=== PATIENT | female | born 1940 | race Caucasian/White ===

== ENCOUNTER 2016-10-15 11:46 | Inpatient (IN) | payer MEDICARE, BC ==
[~2016-10-15] VITALS: Ht 160 cm; Wt 84.0 kg
--- NOTE | ~2016-10-15 | DS ---
PATIENT'S NAME: CARLOS COTA [facility] AGE: 76 Y [address] ROOM: [place] [address] [place] [facility] [place]: 10/15/2016 Discharge Summary DISCHARGE DATE: 10/24/2016 FAMILY PHYSICIAN: Eduardo Chavez MD ATTENDING PHYSICIAN: Sky Mitchell CONSULTING PHYSICIANS: 1. Dr. Wayne Bashir, Urology. 2. Dr. Laureano Paz, interventional radiologist. ADMIT DIAGNOSES: 1. Severe sepsis secondary to Klebsiella pneumonia, urinary tract infection, Enterococcus faecalis urinary tract infection. 2. Bilateral hydronephrosis, status post bilateral percutaneous nephrostomy tubes. 3. Obstructing 8 mm right ureter stone. 4. Acute kidney injury on chronic kidney disease 3. 5. Microcytic anemia, present on admission. 6. Acute hypoxic respiratory failure secondary to severe sepsis and chronic obstructive pulmonary disease. 7. Chronic obstructive pulmonary disease. 8. High suspicion for underlying obstructive sleep apnea. 9. Hypertension, essential. 10. Hypomagnesia. 11. Diastolic congestive heart failure. 12. Obesity with a BMI of 32.5. 13. History of endometrial cancer. 14. Obstructive uropathy with urostomy bag secondary to complication of chemotherapy and radiation. 15. Depression. PRINCIPAL PROCEDURES: Bilateral nephrostomy tubes placement done by Dr. Paz on 10/16/2016. DISCHARGE MEDICATIONS: 1. Lipitor 40 mg p.o. q.h.s. 2. Colestipol HCl 1 g p.o. q.h.s. 3. Celexa 20 mg p.o. daily. 4. Lasix 20 mg p.o. daily. 5. Levofloxacin 750 mg p.o. q.48 hours through 10/29/2016. 6. Magnesium oxide 400 mg p.o. twice daily. 7. Metoprolol Succinate 50 mg p.o. daily. 8. Lisinopril and hydrochlorothiazide 10/12.5 mg 1 tablet p.o. daily. 9. Multivitamin p.o. daily. 10. Florastor 250 mg p.o. b.i.d. PATIENT'S NAME: CARLOS COTA [facility] AGE: 76 Y [address] ROOM: [place] [address] [place] [facility] [place]: 10/15/2016 Discharge Summary DISCHARGE DATE: 10/24/2016 FAMILY PHYSICIAN: Eduardo Chavez MD ATTENDING PHYSICIAN: Sky Mitchell 11. O2 to be worn 3 L with active, O2 necessary at rest. PERTINENT RADIOLOGIC DATA: 1. CT of the abdomen and pelvis without contrast on 10/15/2016 showed an ileal conduit, moderate bilateral hydronephrosis above the level of the anastomosis with a conduit. There is an obstructing 8 mm stone of the right ureter just above the anastomosis with conduit. 2. Chest x-ray on 10/15/2016 showed mild cardiomegaly but no heart failure nor pneumonia. This was repeated on 10/16/2016 for hypoxia and showed a stable chest with no evidence of acute disease. 3. The patient had blood cultures obtained on 10/15/2016, which showed no growth at 5 days. LABORATORY DATA: The patient's creatinine drifted up to as high as 2.5, on the day of discharge had descended to 1.6. Magnesium upon admission was low at 1.4, was 1.8 on 10/24/2016. Iron studies showed iron was low at 16, TIBC 133, percent saturation of 12. CRP was elevated at 20.9 on October 15, 2016. B12 was normal at 915, folate was 26.4, ferritin 400.7. HOSPITAL COURSE: Please refer to the admitting H and P dictated by Dr. Mitchell. The patient was admitted, deemed septic, and was started on antibiotics, which was changed from Zosyn to Levaquin looking back at urine cultures. The patient was placed on the sepsis protocol. She was placed on Protonix. The CT of the abdomen and pelvis at that point was ordered. Interventional Urology was consulted, and Dr. Bashir has seen the patient. At that point, Interventional Radiology was consulted for bilateral nephrostomy tubes placement given her hydronephrosis. Levaquin dosing was adjusted given the patient's GFR. The patient tolerated the percutaneous nephrostomy tube placement well. This was carried out on 10/16/2016. She was felt to be in acute hypoxic respiratory failure on the evening of 10/16/2016. Chest x-ray was obtained. The patient ultimately at that point was transferred to the ICU. Her respiratory failure was felt to be secondary to the sepsis and underlying COPD. The patient was placed on bronchodilators. Solu-Medrol was discontinued on , and heparin was then started for DVT prophylaxis. The patient was then transferred to the PCU unit out of the unit as it felt was stable. The patient was eventually weaned down to 1 L of oxygen to continue to keep sats greater than 90%. The patient has high suspicion of having underlying CONTRERAS. The patient denies ever having undergone a sleep study. There was witnessed apneic spells during hospitalization, and we recommended outpatient sleep study to follow this up. The patient received a bump in Lasix to see if this would help with her respiratory status. She diuresed well, and this does seem to have had benefit to her. Our respiratory therapy follow along throughout her hospitalization also. Ultimately, it was felt that the patient was stable for PATIENT'S NAME: CARLOS COTA [facility] AGE: 76 Y [address] ROOM: [place] [address] [place] [facility] [place]: 10/15/2016 Discharge Summary DISCHARGE DATE: 10/24/2016 FAMILY PHYSICIAN: Eduardo Chavez MD ATTENDING PHYSICIAN: Sky Mitchell discharge on 10/24/2016. The patient was ambulated, and O2 sats were at 82% with ambulation on room air but bumped to 92% with 3 L of O2 with ambulation. DISPOSITION: 1. The patient will be discharged to her own home. She will undergo nephrostomy tube teachings, stable for discharge. 2. She is to follow up on 10/30/2016 for bilateral ureteral stent placement by Dr. Laureano Paz. She is to report for the procedure at 1:45 on 10/30/2016. The patient is to be n.p.o. 8 hours prior to arrival. 3. She needs to see Dr. Bashir in approximately 2 weeks to discuss elective lithotripsy for the ureteral stone seen per CT scan. 4. We recommend that she follow up with either Dr. Eduardo Chavez, her primary physician, or Lisa Huynh PA-C at [facility] in 7 to 10 days. At that point, we recommend checking a CBC, BMP and magnesium level at that visit. The patient will continue on her oral magnesium replacement upon discharge. 5. The patient is to be on 3 L of oxygen per nasal cannula when ambulating. The patient's sats were fine at rest without oxygen. We do recommend that she undergo an outpatient sleep study at some point given her high suspect for underlying CONTRERAS. 6. The patient was instructed to complete her course of antibiotics, which will be a total of 2 weeks of the Levaquin. This should be covered through 10/29/2016. The patient understood discharge instructions and medications. Discharge for this patient took greater than 50 minutes and included contacting subspecialty, disciplinaries, and also attempting to reach her PCP and coordinating care for followup. Also included working with respiratory therapy for home O2. Thank you for allowing us to help participate in this patient's care. SALVATORE RUEDA PA-C FOR MD JANICE BREWER/modl /[id number] CC: MD Laureano Blake MD PATIENT'S NAME: CARLOS COTA [facility] AGE: 76 Y [address] ROOM: [address] [address] [place] [facility] [place]: 10/15/2016 Discharge Summary DISCHARGE DATE: 10/24/2016 FAMILY PHYSICIAN: Eduardo Chavez MD ATTENDING PHYSICIAN: Sky Mitchell PA Scott F Howe, MD d: 10/24/16 2357 t: 10/26/16 1643, DISCHARGE SUMMARY
--- NOTE | ~2016-10-15 | ER ---
PATIENT'S NAME: [facility] AGE: 76 Y [address] ROOM: [address] [place], [place] [address] [facility] ADMIT DATE: 10/15/2016 ER/Outpatient Report DISCHARGE DATE: FAMILY PHYSICIAN: Eduardo Chavez MD ATTENDING PHYSICIAN: Sky BULLARD Admission date and time documented in the medical record. I saw the patient at 1200 hours. CHIEF COMPLAINT: Fever, shaking, chills, weak, and dizziness. HISTORY OF PRESENT ILLNESS: This patient is a 76-year-old female, who was seen yesterday here and was diagnosed with a urinary tract infection. She was recommended to be admitted to the hospital for IV antibiotics, however, she refused. She is placed on Bactrim double strength. She took one last night and one this morning. She has been getting weaker with a lot of lightheaded and dizziness over the past 2 days. Fallen twice at home. She had nausea and vomiting last night and this morning. No diarrhea. No chest pain. No real increase in shortness of breath. She does have a history of COPD and does use oxygen from time to time, especially at night. She woke up this morning with shaking rigors and was noted to have a fever of 101.2 tympanic here in the emergency department. She has fallen twice at home since yesterday. Her oxygen sats were 86% on room air when she arrived here in the emergency department. A little lightheadedness and dizziness, but no syncope or near syncope. No other trauma other than the fall. Did not suffer any injuries with the falls. No recent coughs, colds, or flus. Diagnosed yesterday with a urinary tract infection as stated above. No skin eruptions or rash. No joint or muscle swelling, redness, or pain. Does have a little bit of abdominal pain and dysuria. No history of endocrine problems, neuro changes, or psych issues. She has had a previous episode of sepsis. HOME MEDICATIONS: See attached medication list. ALLERGIES: NONE. SOCIAL HISTORY: Nonsmoker and nondrinker. SIGNIFICANT PAST MEDICAL HISTORY: Hypertension, endometrial uterine cancer, ischemic colitis, C. diff colitis, dyslipidemia, remote tobacco abuse, sepsis, anemia of chronic disease, and PATIENT'S [facility] AGE: 76 Y [address] ROOM: [address] [place], [place] [address] [facility] AD[facility] DATE: 10/15/2016 ER/Outpatient Report DISCHARGE DATE: FAMILY PHYSICIAN: Eduardo Chavez MD ATTENDING PHYSICIAN: Sky BULLARD COPD with nocturnal use of oxygen intermittently. OPERATIONS: Hysterectomy, urostomy placement, radiation therapy, and chemotherapy. REVIEW OF SYSTEMS: All systems reviewed by me are negative with exception of those discussed in the history of present illness. PHYSICAL EXAMINATION: VITAL SIGNS: Temperature 101.2 tympanic, pulse 110, respirations 18, blood pressure 117/57, and O2 saturation on room air is 86%. HEAD: Normocephalic. No abrasion, contusion, laceration, or swelling of the scalp or face. EYES: Extraocular muscles intact. PERRL. EARS, NOSE, AND THROAT: Clear. Mucous membranes a little dry. NECK: No nuchal rigidity. No thyromegaly or cervical adenopathy. No tenderness. SPINE: Nontender. No deformity. LUNGS: Clear. Good air flow. No rales, rhonchi, or wheezes. HEART: Tachy. Regular. Pulses palpable. ABDOMEN: Soft. Some mild tenderness in the lower abdomen. No distention. No true guarding or rigidity. No rebound tenderness. Active bowel tones. No organomegaly or abnormal mass palpable. Urostomy in place. EXTREMITIES: Without peripheral edema, cyanosis, or deformity. NEUROVASCULAR: Intact. SKIN: Clear. No skin eruptions or rash. LABORATORY DATA: White count is 19,900, 66 segs, 31 bands, 2 lymphocytes, 1 mono, hemoglobin is 9.2 with hematocrit of 29.0, and platelet count is 351,000. PTT is 37, pro- time is 12.9 with an INR of 1.23. Lactate was 1.0. Procalcitonin was 8.53. CMS was normal, except for a slight low potassium of 3.5, elevated glucose 142, low calcium of 8.4, elevated BUN of 35, elevated creatinine of 2.2, low GFR 21. CRP was 20.9. Blood cultures x2 drawn, results pending. Urine was obtained yesterday with urine culture. Results of the culture is pending. The patient was started on IV normal saline, fluids is to be given a total of 2.5 L of normal saline per sepsis protocol IV. We did start her on IV Zosyn 4.5 g in the emergency department. We did give her some Zofran for nausea and vomiting. IMPRESSION: 1. Severe sepsis. Etiology urinary tract infection. The patient has an elevated white count of 19,900 with bandemia 31% bands. She has a procalcitonin elevation of 8.53, elevated CRP at 20.9. Her creatinine is PATIENT'S NAME: CARLOS COTA [facility] AGE: 76 Y [address] ROOM: [place] [address] LOCATION: [facility] ADMIT DATE: 10/15/2016 ER/Outpatient Report DISCHARGE DATE: FAMILY PHYSICIAN: Eduardo Chavez MD ATTENDING PHYSICIAN: Sky BULLARD elevated 2.2. She has a temperature of 101.2. She is hypoxic with O2 saturation of 86% on room air. She is tachycardic with a pulse rate of 110. 2. Anemia of chronic disease with a hemoglobin of 9.2 and hematocrit of 29.0. 3. Chronic kidney disease with BUN of 35, creatinine of 2.2, and low GFR of 21. 4. Chronic obstructive pulmonary disease. 5. Remote tobacco abuse. 6. Dyslipidemia. 7. History of endometrial uterine cancer, status post radiation chemotherapy and urostomy placement. PLAN: Sepsis start time was 1315 hours. IV fluids were started. IV antibiotics were started. The patient was given ibuprofen for fever and Zofran for nausea and vomiting. I did discuss with the patient with Dr. Ramírez, hospitalist. Dr. Ramírez is coming to the emergency room to evaluate the patient and admit the patient to the hospital for inpatient treatment. Discussed with the patient concerning my findings and recommendations, she understands. Accumulated critical care time 30 minutes. AMANUEL MONTOYA MD SDS/modl /[id number] d: 10/15/16 2136 t: 10/16/16 0633, OUTPATIENT REPORT
--- NOTE | ~2016-10-15 | HP ---
PATIENT'S NAME: CARLOS COTA [facility] AGE: 76 Y [address] ROOM: [place] [address] LOCATION: [facility] ADMIT DATE: 10/15/2016 History & Physical DISCHARGE DATE: FAMILY PHYSICIAN: Eduardo Chavez MD ATTENDING PHYSICIAN: Sky BULLARD DATE OF SERVICE: CHIEF COMPLAINT: Severe sepsis. HISTORY OF PRESENT ILLNESS: The patient is a 76-year-old female with past medical history of uterine cancer, status post chemotherapy and radiation and hysterectomy, and hypertension who presents here with severe sepsis secondary to UTI. The patient was initially seen in the emergency department yesterday with a chief complaint of fever, chills, fatigue, and fall. The patient was noted to have urinary tract infection on ED evaluation. The patient was offered for admission, but, however, declines and went home. The patient was discharged to home with Bactrim. The patient now presents with worsening of symptoms. The patient reports that she fell yesterday in the bathroom while standing. Blood pressure was noted to be low by her daughter. The patient also had another episode of just fatigueness and fall. The patient denies any loss of consciousness, head trauma, seizure-like activity, or bowel and urinary incontinence. The patient also reports a fever of 101 at home and chills. The patient denies chest pain, shortness of breath, abdominal pain, nausea, vomiting, diarrhea, loss of consciousness, head trauma, seizure-like activity, vision change, or motor and sensory weakness. PAST MEDICAL HISTORY: 1. Uterine cancer status post hysterectomy and chemotherapy and radiation. 2. Obstructive uropathy with urostomy bag secondary to complication of chemotherapy and radiation. 3. Obstructive sleep apnea. 4. Depression. 5. Hypertension. PAST SURGICAL HISTORY: Hysterectomy and urostomy bag placement. FAMILY HISTORY: Mother has a history of diabetes mellitus, type 2. Father has a history of heart disease. PATIENT'S NAME: CARLOS COTA [facility] AGE: 76 Y [address] ROOM: [place] [address] LOCATION: [facility] ADMIT DATE: 10/15/2016 History & Physical DISCHARGE DATE: FAMILY PHYSICIAN: Eduardo Chavez MD ATTENDING PHYSICIAN: Sky BULLARD SOCIAL HISTORY: The patient lives at home with her . Former smoker and stopped smoking in February 2016. ALLERGIES: NO KNOWN ALLERGIES. MEDICATIONS: 1. Lisinopril and hydrochlorothiazide 20-12.5 mg. 2. Lasix 20 mg. 3. Citalopram 20 mg. 4. Lopressor 50 mg. 5. Lipitor 40 mg. REVIEW OF SYSTEMS: All systems have been reviewed and are negative except for what I mentioned in the HPI. PHYSICAL EXAMINATION: VITAL SIGNS: Temperature 101.3, blood pressure 117/57, heart rate of 110, respiratory rate of 18, and 86% on room air. GENERAL APPEARANCE: The patient is alert and awake, in no acute distress, lying on bed among family. HEENT: Head; normocephalic and atraumatic. Eyes; extraocular muscles intact. Sclerae nonicteric. Nose; no nasal discharge. Ears; no ear discharge. Oral cavity; moist oral cavity. CHEST: Bilateral distant breath sounds. No rales, wheezing, or rhonchi noted. HEART: Regular rate and rhythm. No murmurs, rubs, or gallops. ABDOMEN: Old surgical scars. Urostomy bag present. Abdomen is soft, nontender, and nondistended. Bowel sounds present. SKIN: Warm to touch. FOAM TANK LAMINATOR: The patient is alert and oriented x3. Motor and sensory grossly intact. MUSCULOSKELETAL: Range of motion intact. No obvious joint effusion noted. LABORATORY DATA: Lactate of 1.0. White blood cell count of 19, hemoglobin of 9.2, MCV of 78.4, and platelets of 351,000. Glucose of 142, BUN of 35, creatinine of 2.2, sodium of 136, potassium of 3.5, and CO2 of 23. Total bilirubin of 0.6, ESR of 67, and INR of 1.23. UA shows pyuria and hematuria. CRP of 20, procalcitonin of 8.53. Also shows a bandemia with 31%. PATIENT'S NAME: CARLOS COTA [facility] AGE: 76 Y [address] ROOM: [address] [place], [place] [address] [facility] DATE: 10/15/2016 History & Physical DISCHARGE DATE: FAMILY PHYSICIAN: Eduardo Chavez MD ATTENDING PHYSICIAN: Sky BULLARD ASSESSMENT AND PLAN: 1. Severe sepsis notified at 1315 hours. Etiology most likely secondary to pyelonephritis. The patient is presenting with fever, chills, and leukocytosis with bandemia and UA showing pyuria. Also elevated procalcitonin of 8.3. The patient's blood pressure initially was labile. To receive 30 mL per kg of IV fluids in the emergency department. To give a total of 2.5 L. After that we will start maintenance dose of 100 mL per an hour of normal saline. After assessing patient's last urine culture, the patient's last UA shows Citrobacter and Enterococcus faecalis. The patient received Zosyn in the emergency department. However, on the last urine culture and sensitivity, the Citrobacter was resistant to Zosyn. However, Enterococcus and Citrobacter were sensitive to Levaquin. We will start the patient on Levaquin. Lactate is normal. We will follow patient clinically. Blood culture and urine culture are pending. We will also acquire a chest x-ray to further investigate positivity of pneumonia. 2. Acute pyelonephritis. See problem #1. To acquire CT abdomen to rule out abscess and obstructive uropathy. 3. Fall, etiology most likely secondary to low blood pressure. Holding antihypertensive medication. To continue with IV fluids. 4. Depression. Continue medication. 5. Acute on chronic kidney disease. The patient with a baseline creatinine of 1.5 to 1.4 presenting with a creatinine of 2.2. Etiology is most likely secondary to sepsis and dehydration. To continue IV fluids. 6. Obstructive sleep apnea. Continue CPAP. 7. Obesity, ongoing. Greater than 70 minutes were spent on patient's care. Greater than 50% of the time was spent in direct patient's care. Assessment and plan was discussed with family and patient. All questions were answered with satisfaction. Also, discussed case with Dr. Jordan. We will change the Zosyn to Levaquin. To acquire chest x-ray and CT abdomen. Code status discussed on admission. Code status is full code. MD KATHY WELLER/spencer /[id number] D: [id number] T: [id number] HISTORY & PHYSICAL
--- NOTE | ~2016-10-15 | CON ---
PATIENT'S NAME: CARLOS COTA [facility] AGE: 76 Y [address] [place] [facility] [place], [place] [address] LOCATION: [facility] ADMIT DATE: 10/15/2016 Consultation DISCHARGE DATE: FAMILY PHYSICIAN: Eduardo Chavez MD ATTENDING PHYSICIAN: Sky MITCHELL DATE OF CONSULTATION: 10/16/2016 REFERRING PHYSICIAN: Laureano Paz CONSULTING PHYSICIAN: Sky Mitchell MD REASON FOR CONSULTATION: Urosepsis with ureteral obstruction. HISTORY OF PRESENT ILLNESS: This is a pleasant, 76-year-old lady who is about 9 months status post ileal conduit urinary diversion in [place]. She has had some issues with infection. She had been feeling poorly. She was seen in the emergency room here. She did not want to be admitted, and she was not that sick. They attempted outpatient management, but unfortunately, she progressed. She was admitted yesterday with urosepsis. She is on empiric antibiotics and hemodynamically stable at this time. Relevant history is a remote history of uterine cancer. She underwent chemotherapy and radiation. She tells me she finished her last treatment some 5 to 6 years ago. She has done well from that standpoint. Unfortunately, she had urologic complications. The chart mentions obstructive nephropathy. She tells me she has had severe incontinence. She could not hold anything. I suspect it may have been a combination of the two. In any event, she underwent the ileal conduit diversion in February 2016. She has a creatinine of approximately 2.4. She underwent a noncontrasted CT scan. She has bilateral hydroureteronephrosis. The dilation is relatively symmetric. However, the right side is complicated by an 8 mm stone above the ureteroileal anastomosis. I compared a CT scan from 13 months ago to the current. Renal function was apparently better at that time. It was a contrasted study. She had no hydronephrosis prior to her diversion. PHYSICAL EXAMINATION: On examination, she is currently febrile. She is sweaty and warm. As noted, cultures are pending. Her abdomen is soft, and benign. She is not having a lot of pain symptoms with the stone. Her stoma appears healthy. Importantly, PATIENT'S NAME: CARLOS COTA [facility] AGE: 76 Y [address] ROOM: [address] [place] [id number] [facility]: 10/[facility]/2016 Consultation DISCHARGE DATE: FAMILY PHYSICIAN: Eduardo Chavez MD ATTENDING PHYSICIAN: Sky MITCHELL her stoma appears decompressed on the CT scan. DISCUSSION: I discussed her situation with Dr. Mitchell. With the renal insufficiency and the symmetric hydronephrosis, I would recommend bilateral percutaneous interventions. Hopefully, they can internalize stents. That will improve the infection resolution. We can then likely proceed with elective lithotripsy. Hopefully, she will not be in need of anastomotic revision. I reviewed that with the patient. She seems to have a good understanding. IMPRESSION: 1. Urosepsis. 2. Bilateral hydroureteronephrosis. 3. Right 8 mm ureteral calculus. 4. Chronic renal insufficiency. PLAN: As above. I will follow her progress. Thank you for the consultation. ALLEN ADORNO MD [facility]/modl /[id number] CC: Eduardo Chavez MD d: 10/16/16 1203 t: 10/24/16 1023, CONSULTATION REPORT
[~2016-10-15 11:46] MED LIST: ARTIFICIAL TEAR15 ML OPHTH; CELEXA20 MG PO; CIPRO500 MG PO; LASIX20 MG PO; LIPITOR40 MG PO; LISINOPRIL-HCT1 EACH PO; OXYGEN M-15; THERA-VITE W/ B1 TAB PO; TOPROL XL 5050 MG PO; VITAMIN D-32000 UNI1 PO
[2016-10-15 12:38] LABS: HEMOGLOBIN 9.2 g/dL (10.0-15.0); MCH 24.9 pg (27.0-34.0); MCHC 31.7 gm/dL (32.0-36.5); MCV 78.4 fl (83.0-98.0); MPV 9.8 fl (9.4-12.4); RDW-CV 18.7 % (11.9-14.6)
[2016-10-15 12:40] LABS: PLATELET COUNT 351 K/uL (150-450); WBC 19.9 K/uL (4.0-11.0)
[2016-10-15 12:42] LABS: INR - (THERAPEUTIC) 1.23 (0.92-1.07); PROTIME 12.9 SECONDS (9.8-11.4); PTT 37 SECONDS (25-32)
[2016-10-15 12:52] LABS: ALBUMIN 2.5 gm/dL (3.5-5.0); ANION GAP 13.5 (10.0-19.0); CALCIUM 8.4 mg/dL (8.5-10.5); CREATININE 2.2 mg/dL (0.5-1.1); POTASSIUM 3.5 mMol/L (3.7-5.1); TOTAL BILIRUBIN 0.6 mg/dL (0.0-1.5); TOTAL PROTEIN 6.8 g/dL (6.0-8.4)
[2016-10-15 13:17] LABS: ABSOLUTE NEUTROPHIL CT (ANC) 19.3 K/uL (1.8-7.8); BANDED NEUTROPHIL # 6.2 K/uL (0.0-0.1); BANDED NEUTROPHILS % 31 %; LYMPHOCYTE # 0.4 K/uL (0.8-4.0); LYMPHOCYTE % 2 %; MONOCYTE # 0.2 K/uL (0.0-1.0); SEGMENTED NEUTROPHIL # 13.1 K/uL (1.8-7.8); SEGMENTED NEUTROPHIL % 66 %
[2016-10-15] MEDS ORDERED: LASIX20 MG PO (15:54)
[2016-10-15 17:29] LABS: BILIRUBIN URINE NEGATIVE (NEGATIVE); BLOOD URINE 50 /UL (NEGATIVE); COLOR URINE YELLOW (YELLOW); GLUCOSE URINE NEGATIVE (NEGATIVE); KETONE URINE NEGATIVE (NEGATIVE); LEUKOCYTES URINE 500 /UL (NEGATIVE); NITRITE URINE NEGATIVE (NEGATIVE); PROTEIN URINE 30 mg/dL (NEGATIVE); TURBIDITY URINE 1+ (CLEAR); UROBILINOGEN URINE NORMAL (NORMAL)
[2016-10-15 17:37] LABS: BACTERIA URINE FEW (NEGATIVE); EPITHELIAL URINE NEGATIVE #/HPF (NEGATIVE); RBC URINE 0-2 #/HPF (NEGATIVE)
[2016-10-15 17:55] LABS: PCO2 51 mmHg (35-45); PO2 68 mmHg (80-90)
[2016-10-16 05:44] LABS: HEMATOCRIT 24.5 % (33.0-46.0); MCV 79.8 fl (83.0-98.0); MPV 9.3 fl (9.4-12.4); RBC 3.07 M/uL (3.50-5.50); RDW-CV 19.4 % (11.9-14.6); WBC 14.6 K/uL (4.0-11.0)
[2016-10-16 05:56] LABS: HEMOGLOBIN 7.7 g/dL (10.0-15.0); MCH 25.1 pg (27.0-34.0); MCHC 31.4 gm/dL (32.0-36.5); PLATELET COUNT 227 K/uL (150-450)
[2016-10-16 06:03] LABS: ANION GAP 11.5 (10.0-19.0); CALCIUM 7.5 mg/dL (8.5-10.5); CREATININE 2.4 mg/dL (0.5-1.1); POTASSIUM 3.5 mMol/L (3.7-5.1); TOTAL PROTEIN 5.6 g/dL (6.0-8.4)
[2016-10-16 06:08] LABS: ALBUMIN 1.9 gm/dL (3.5-5.0); TOTAL BILIRUBIN 0.4 mg/dL (0.0-1.5)
[2016-10-16 06:55] LABS: ABSOLUTE NEUTROPHIL CT (ANC) 13.6 K/uL (1.8-7.8); BANDED NEUTROPHIL # 2.6 K/uL (0.0-0.1); BANDED NEUTROPHILS % 18 %; LYMPHOCYTE # 0.4 K/uL (0.8-4.0); LYMPHOCYTE % 3 %; MONOCYTE # 0.1 K/uL (0.0-1.0); SEGMENTED NEUTROPHIL % 75 %
[2016-10-16] MEDS ORDERED: BACTRIM DS1 TAB PO (09:58)
[2016-10-16 18:23] LABS: HEMATOCRIT 26.4 % (33.0-46.0); HEMOGLOBIN 8.1 g/dL (10.0-15.0); MCH 24.9 pg (27.0-34.0); MCHC 30.7 gm/dL (32.0-36.5); MCV 81.2 fl (83.0-98.0); MPV 10.1 fl (9.4-12.4); PLATELET COUNT 271 K/uL (150-450); RBC 3.25 M/uL (3.50-5.50); RDW-CV 19.5 % (11.9-14.6); WBC 13.5 K/uL (4.0-11.0)
[2016-10-16 18:53] LABS: ABSOLUTE NEUTROPHIL CT (ANC) 12.6 K/uL (1.8-7.8); BANDED NEUTROPHIL # 2.2 K/uL (0.0-0.1); BANDED NEUTROPHILS % 16 %; LYMPHOCYTE # 0.4 K/uL (0.8-4.0); LYMPHOCYTE % 3 %; MONOCYTE # 0.4 K/uL (0.0-1.0); SEGMENTED NEUTROPHIL # 10.4 K/uL (1.8-7.8); SEGMENTED NEUTROPHIL % 77 %
[2016-10-17 06:01] LABS: HEMATOCRIT 26.4 % (33.0-46.0); MCHC 30.3 gm/dL (32.0-36.5); MCV 82.5 fl (83.0-98.0); MPV 9.3 fl (9.4-12.4); PLATELET COUNT 218 K/uL (150-450); RDW-CV 19.8 % (11.9-14.6); WBC 18.9 K/uL (4.0-11.0)
[2016-10-17 06:19] LABS: ANION GAP 13.8 (10.0-19.0); CREATININE 2.5 mg/dL (0.5-1.1); POTASSIUM 3.8 mMol/L (3.7-5.1)
[2016-10-17 06:20] LABS: CALCIUM 7.3 mg/dL (8.5-10.5); TOTAL BILIRUBIN 0.3 mg/dL (0.0-1.5)
[2016-10-17 06:33] LABS: ABSOLUTE NEUTROPHIL CT (ANC) 18.5 K/uL (1.8-7.8); BANDED NEUTROPHIL # 3.4 K/uL (0.0-0.1); BANDED NEUTROPHILS % 18 %; MONOCYTE # 0.4 K/uL (0.0-1.0); SEGMENTED NEUTROPHIL # 15.1 K/uL (1.8-7.8); SEGMENTED NEUTROPHIL % 80 %
[2016-10-17 07:03] LABS: LYMPHOCYTE % 0 %
[2016-10-18 05:33] LABS: BASOPHIL % 0.1 %; EOSINOPHIL # 0.2 K/uL (0.0-0.5); EOSINOPHIL % 1.2 %; HEMATOCRIT 27.6 % (33.0-46.0); HEMOGLOBIN 8.4 g/dL (10.0-15.0); IMMATURE GRANULOCYTE # 0.4 K/uL (0.0-0.3); IMMATURE GRANULOCYTE % 3.2 %; LYMPHOCYTE # 0.8 K/uL (0.8-4.0); MCH 24.7 pg (27.0-34.0); MCHC 30.4 gm/dL (32.0-36.5); MCV 81.2 fl (83.0-98.0); MONOCYTE # 0.6 K/uL (0.0-1.0); MONOCYTE % 4.5 %; MPV 10.2 fl (9.4-12.4); NEUTROPHIL # (ANC) 11.7 K/uL (1.8-7.8); NRBC % 0 /100WBC (0-0.00); PLATELET COUNT 221 K/uL (150-450); RDW-CV 19.9 % (11.9-14.6); WBC 13.7 K/uL (4.0-11.0)
[2016-10-18 05:45] LABS: CALCIUM 7.7 mg/dL (8.5-10.5); CREATININE 2.1 mg/dL (0.5-1.1); POTASSIUM 3.5 mMol/L (3.7-5.1); TOTAL BILIRUBIN 0.3 mg/dL (0.0-1.5); TOTAL PROTEIN 5.8 g/dL (6.0-8.4)
[2016-10-18 05:46] LABS: ANION GAP 13.5 (10.0-19.0)
[2016-10-19 05:20] LABS: HEMATOCRIT 26.6 % (33.0-46.0); HEMOGLOBIN 8.3 g/dL (10.0-15.0); MCH 24.9 pg (27.0-34.0); MCHC 31.2 gm/dL (32.0-36.5); MCV 79.6 fl (83.0-98.0); MPV 9.7 fl (9.4-12.4); PLATELET COUNT 230 K/uL (150-450); RBC 3.34 M/uL (3.50-5.50); WBC 10.4 K/uL (4.0-11.0)
[2016-10-19 05:41] LABS: CALCIUM 8.3 mg/dL (8.5-10.5); POTASSIUM 3.3 mMol/L (3.7-5.1); TOTAL BILIRUBIN 0.3 mg/dL (0.0-1.5); TOTAL PROTEIN 5.5 g/dL (6.0-8.4)
[2016-10-19 05:44] LABS: ALBUMIN 1.8 gm/dL (3.5-5.0); ANION GAP 12.3 (10.0-19.0)
[2016-10-19 06:12] LABS: ABSOLUTE NEUTROPHIL CT (ANC) 7.9 K/uL (1.8-7.8); BANDED NEUTROPHIL # 0.3 K/uL (0.0-0.1); BANDED NEUTROPHILS % 3 %; LYMPHOCYTE # 1.1 K/uL (0.8-4.0); LYMPHOCYTE % 11 %; MONOCYTE # 0.7 K/uL (0.0-1.0); SEGMENTED NEUTROPHIL # 7.6 K/uL (1.8-7.8); SEGMENTED NEUTROPHIL % 73 %
[2016-10-20 05:25] LABS: HEMATOCRIT 30.5 % (33.0-46.0); HEMOGLOBIN 9.6 g/dL (10.0-15.0); MCH 24.9 pg (27.0-34.0); MCHC 31.5 gm/dL (32.0-36.5); MPV 9.7 fl (9.4-12.4); PLATELET COUNT 276 K/uL (150-450); RBC 3.86 M/uL (3.50-5.50); RDW-CV 19.9 % (11.9-14.6); WBC 10.8 K/uL (4.0-11.0)
[2016-10-20 05:46] LABS: ALBUMIN 2.2 gm/dL (3.5-5.0); ANION GAP 12.8 (10.0-19.0); CALCIUM 8.9 mg/dL (8.5-10.5); CREATININE 2.1 mg/dL (0.5-1.1); MAGNESIUM 1.4 mg/dL (1.8-2.6); PHOSPHORUS 2.2 mg/dL (2.5-4.9); POTASSIUM 3.8 mMol/L (3.7-5.1)
[2016-10-20 06:05] LABS: ABSOLUTE NEUTROPHIL CT (ANC) 7.7 K/uL (1.8-7.8); BANDED NEUTROPHIL # 0.3 K/uL (0.0-0.1); BANDED NEUTROPHILS % 3 %; LYMPHOCYTE # 1.8 K/uL (0.8-4.0); LYMPHOCYTE % 17 %; SEGMENTED NEUTROPHIL # 7.3 K/uL (1.8-7.8); SEGMENTED NEUTROPHIL % 68 %
[2016-10-21 05:28] LABS: ALBUMIN 2.2 gm/dL (3.5-5.0); ANION GAP 10.5 (10.0-19.0); CALCIUM 8.8 mg/dL (8.5-10.5); CREATININE 1.8 mg/dL (0.5-1.1); MAGNESIUM 1.8 mg/dL (1.8-2.6); POTASSIUM 3.5 mMol/L (3.7-5.1)
[2016-10-23 04:52] LABS: ALBUMIN 2.3 gm/dL (3.5-5.0); ANION GAP 9.7 (10.0-19.0); CALCIUM 8.5 mg/dL (8.5-10.5); CREATININE 1.8 mg/dL (0.5-1.1); POTASSIUM 3.7 mMol/L (3.7-5.1); TOTAL BILIRUBIN 0.3 mg/dL (0.0-1.5)
[2016-10-24 05:06] LABS: ANION GAP 9.8 (10.0-19.0); CALCIUM 8.5 mg/dL (8.5-10.5); CREATININE 1.6 mg/dL (0.5-1.1); MAGNESIUM 1.8 mg/dL (1.8-2.6); POTASSIUM 3.8 mMol/L (3.7-5.1)
[2016-10-24] MEDS ORDERED: FLORASTOR250 MG PO (14:55)
[2016-10-24] MEDS ORDERED: LEVAQUIN750 MG PO (15:03)
[2016-10-24] MEDS ORDERED: MAG-OX-400(241400 MG PO (15:05)
[2016-10-26] MEDS ORDERED: COLESTIPOL HCL1 GM PO (15:38)
[2016-11-09] MEDS ORDERED: OXYGEN M-15 INH (13:14)
== END 2016-10-24 15:45 | disposition disaster alternative care site (69) | DRG 871 ==
LOC: GMED 11:46 → GPCU 14:55 → GICU 10-16 19:08 → GMSU 10-18 20:28
PROVIDERS: Emergency Medicine; Physician Assistant; ADMIT Internal Medicine
PROC: 0T9430Z Drainage of Left Kidney Pelvis with Drainage Device, Percutaneous Approach (ICD-10-PCS; principal; 2016-10-15)
PROC: 0T9330Z Drainage of Right Kidney Pelvis with Drainage Device, Percutaneous Approach (ICD-10-PCS; principal; 2016-10-15)
DX: A41.9 Sepsis, unspecified organism (principal); J96.21 Acute and chronic respiratory failure with hypoxia; J15.0 Pneumonia due to Klebsiella pneumoniae; N17.9 Acute kidney failure, unspecified; J44.9 Chronic obstructive pulmonary disease, unspecified; N18.3 Chronic kidney disease, stage 3 (moderate); N13.9 Obstructive and reflux uropathy, unspecified; N39.0 Urinary tract infection, site not specified; N12 Tubulo-interstitial nephritis, not specified as acute or chronic; D50.9 Iron deficiency anemia, unspecified; D72.829 Elevated white blood cell count, unspecified; F32.9 Major depressive disorder, single episode, unspecified; G47.33 Obstructive sleep apnea (adult) (pediatric); R65.20 Severe sepsis without septic shock; B95.2 Enterococcus as the cause of diseases classified elsewhere
CPT/HCPCS: C1729; C1769; J0692; J1644; J1940; J1956; J2175; J2250; J2405; J2543; J2920; J2930; J3010; J3370; J3475; J7030; J7040; J7050

== ENCOUNTER → 2016-10-30 | Outpatient (CLI) | payer MEDICARE, BC ==
[~2016-10-30] MED LIST changes: +BACTRIM DS1 TAB PO; +COLESTIPOL HCL1 GM PO; +FLORASTOR250 MG PO; +LEVAQUIN750 MG PO; +MAG-OX-400(241400 MG PO; +OXYGEN M-15 INH
== END | disposition disaster alternative care site (69) ==
LOC: GOPD 10-26 13:00
DX: A41.9 Sepsis, unspecified organism (principal); J44.9 Chronic obstructive pulmonary disease, unspecified; N10 Acute pyelonephritis; N13.2 Hydronephrosis with renal and ureteral calculous obstruction; N39.0 Urinary tract infection, site not specified; N18.9 Chronic kidney disease, unspecified; J15.0 Pneumonia due to Klebsiella pneumoniae; D63.1 Anemia in chronic kidney disease; R65.20 Severe sepsis without septic shock
CPT/HCPCS: C1725; C1769; C1887; C2617; J2001; J2250; J3010; J7030; J7040

== ENCOUNTER → 2016-11-06 | Outpatient (CLI) | payer MEDICARE, BC | END | disposition disaster alternative care site (69) | LOC: GRAD 13:05 | PROC: 0T25X0Z Change Drainage Device in Kidney, External Approach (ICD-10-PCS; principal; 2016-11-06) | DX: Z46.82 Encounter for fitting and adjustment of non-vascular catheter (principal) | CPT/HCPCS: C1769; J7040 ==

== ENCOUNTER → 2016-11-14 | Day surgery (SDC) | payer MEDICARE, BC ==
[~2016-11-14] VITALS: Ht 160 cm; Wt 80.9 kg
--- NOTE | ~2016-11-14 | OR ---
PATIENT'S NAME: CARLOS COTA [facility] AGE: 76 Y [address] ROOM: [place] [address] [place] [facility] [place]: 11/14/2016 OR/Procedure Report DISCHARGE DATE: FAMILY PHYSICIAN: RITA LAWSON ATTENDING PHYSICIAN: Wayne Adorno SURGEON: Wayne Adorno MD INSURANCE LICENSING SUPERVISOR: DATE OF PROCEDURE: 11/14/2016 PREOPERATIVE DIAGNOSES: 1. Bilateral hydronephrosis, status post percutaneous nephrostomy tubes and internalization of stents. 2. Recent urosepsis. 3. 8 mm right ureteral calculus. 4. Chronic renal insufficiency. 5. History of endometrial carcinoma, status post radiation. POSTOPERATIVE DIAGNOSES: 1. Bilateral hydronephrosis, status post percutaneous nephrostomy tubes and internalization of stents. 2. Recent urosepsis. 3. 8 mm right ureteral calculus. 4. Chronic renal insufficiency. 5. History of endometrial carcinoma, status post radiation. PROCEDURE: 1. Right ureteroscopy. 2. Left stent removal with right stent exchange. 3. Right extracorporeal shock wave lithotripsy. ANESTHESIA: Sedation. INDICATION: This is a 76-year-old lady with the above-noted diagnoses. She has a remote history of endometrial carcinoma and radiation. She had apparent issues associated with that. Ultimately, she ended up getting an ileal conduit urinary diversion in approximately February of 2016 in [place]. 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 She had no significant hydronephrosis on a previous CT scan. She did admit earlier this summer with urosepsis. She had bilateral hydronephrosis and worsening renal function. She underwent acute percutaneous drainage per Interventional Radiology. She then ultimately had stents placed and internalized. Her nephrostomy tubes were removed in the last 1-2 weeks. She now presents for further intervention. I would note that she has strictures at the anastomoses with the right being more severe than left. A balloon dilation was undertaken on the right prior. PATIENT'S NAME: CARLOS COTA [facility] AGE: 76 Y [address] ROOM: [place] [address] [place] [facility] [place] DATE: 11/14/2016 OR/Procedure Report DISCHARGE DATE: FAMILY PHYSICIAN: RITA LAWSON ATTENDING PHYSICIAN: Wayne Adorno DESCRIPTION OF PROCEDURE: Having obtained her informed consent, the patient was taken first to the cystoscopy suite. She is placed in a supine position. We prepped this what we could around her stoma. I then accessed her ureteral stents in the conduit. We can see that both of them have migrated down to the approximate level of the ureteroileal anastomoses. We can see the stone nicely. I passed a guidewire through the right stent. It passes to the level of the renal pelvis. 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 The wire appears to go into the lower pole collecting system, and based on this interpretation, the stone is in the upper pole moiety ureter. Having had the indwelling left- sided stent and with no other pathology on the left, I went ahead and removed the left stent. Over the guidewire, ureteroscopy was undertaken. The right ureteroileal anastomosis is too tight, in spite of the previous balloon dilation, I cannot get the flexible ureteroscope through. Part of that is because we do not have any leverage working through the conduit. I opted to see if I could replace the right-sided stent and proceed with ESWL. The initial plan was to see if we could access it ureteroscopically. As we see, we can get the ureteroscope through as indicated above. In addition, we now find that the stone is in the ureter draining the upper pole moiety. They appear to join just above the anastomosis. Again, our access from Interventional Radiology was through the lower pole. A 30-Italian stent is utilized. At 6-Italian, I am using a longer stent because we were almost migrated completely out of the ureter. The stent slides over the guidewire and up to the lower pole moiety. The stone actually migrates up a little bit as we pushed the stent in and as we move the patient around, it is going to be in a better position for ESWL. We have the stent in good position with a curl up in the lower pole collecting system and other coil in the ileal conduit. The patient was now moved to the lithotripsy suite. The stone has floated up higher. It is now in the upper pole collecting system. It will be much more amenable to targeting. The stone was brought in the second focal point ellipsoid and fragmentation begun. We started at 14 kV and worked up to a maximum of 22 kV. After 3000 impulses, the stone appeared to be completely fragmented. The patient tolerated the procedure well. BLOOD LOSS: Negligible. SPECIMENS: No specimens were sent. PATIENT'S NAME: CARLOS COTA [facility] AGE: 76 Y [address] ROOM: [place] [address] [place]: [facility] [place] DATE: 11/14/2016 OR/Procedure Report DISCHARGE DATE: FAMILY PHYSICIAN: RITA LAWSON ATTENDING PHYSICIAN: Wayne Adorno The patient returned to Recovery, awake and stable condition. We will get a followup x-ray. We may consider further attempts at dilation at the anastomosis. Ultimately, considering the fact that she is less than a year out, she may need open revision versus ongoing internal stents for a percutaneous nephrostomy tubes depending on how her renal function responds. I would note that her creatinine was 1.8 two weeks ago. We have a level pending today. We will follow that as well as follow her symptomatically. WAYNE ADORNO MD SF[facility]/modl /[id number] CC: FINA Sullivan d: 11/14/16 1527 t: 11/28/16 1110, OPERATIVE SUMMARY
[2016-11-14 12:09] LABS: ALBUMIN 2.4 gm/dL (3.5-5.0); CALCIUM 8.5 mg/dL (8.5-10.5); CREATININE 1.6 mg/dL (0.5-1.1); TOTAL PROTEIN 6.3 g/dL (6.0-8.4)
[2016-11-14 12:10] LABS: ANION GAP 13.3 (10.0-19.0); POTASSIUM 4.3 mMol/L (3.7-5.1); TOTAL BILIRUBIN 0.6 mg/dL (0.0-1.5)
== END ==
LOC: GPOC 11-09 14:00 → GSDC 08:59 → GPOC 14:00
PROVIDERS: Urology
PROC: 0TF6XZZ Fragmentation in Right Ureter, External Approach (ICD-10-PCS; principal; 2016-11-14)
PROC: 0T768DZ Dilation of Right Ureter with Intraluminal Device, Via Natural or Artificial Opening Endoscopic (ICD-10-PCS; 2016-11-14)
DX: N13.2 Hydronephrosis with renal and ureteral calculous obstruction (principal); I12.9 Hypertensive chronic kidney disease with stage 1 through stage 4 chronic kidney disease, or unspecified chronic kidney disease; N18.9 Chronic kidney disease, unspecified; E78.00 Pure hypercholesterolemia, unspecified; G47.30 Sleep apnea, unspecified; K21.9 Gastro-esophageal reflux disease without esophagitis; K64.9 Unspecified hemorrhoids; Z90.710 Acquired absence of both cervix and uterus; Z98.42 Cataract extraction status, left eye; Z98.41 Cataract extraction status, right eye; Z79.899 Other long term (current) drug therapy
CPT/HCPCS: C1769; C2617; J1956; J2001; J7030

== ENCOUNTER → 2016-12-06 | Outpatient (CLI) | payer MEDICARE, BC | END | disposition disaster alternative care site (69) | LOC: GRAD 08:49 | DX: N20.0 Calculus of kidney (principal); N28.89 Other specified disorders of kidney and ureter; Z93.6 Other artificial openings of urinary tract status; Z98.890 Other specified postprocedural states ==